=== PATIENT | male | born 1970 | race Caucasian/White ===

== ENCOUNTER 2019-02-02 23:26 | Emergency (ER) | payer SELFPAY ==
[~2019-02-02] VITALS: Ht 177.8 cm; Wt 81.6 kg
[~2019-02-02 23:26] MED LIST: CIPRODEX 0.3%-7.5 ML OT; FLEXERIL10 MG PO; SEPTRA DS 800 M1 TAB PO; TRAMADOL HCL50 MG PO; VICODIN 500 MG-1 TAB PO
[2019-02-02 23:49] LABS: BASO % 0.3 % (0.0-1.0); EOS % 0.1 % (1.0-4.0); HEMATOCRIT 43.5 % (42.0-52.0); HEMOGLOBIN 14.8 g/dl (14.0-18.0); LYMPH # 2.9 10*3/uL (1.3-4.4); LYMPH % 33.2 % (27.0-41.0); MEAN CELL VOLUME 95.8 fl (80.0-94.0); MEAN CORPUSCULAR HGB 32.6 pg (27.0-31.0); MEAN PLATELET VOLUME 9.3 fl (9.6-12.3); MONO # 0.7 10*3/uL (0.1-1.0); MONO % 8.5 % (3.0-9.0); NEUT % 57.8 % (47.0-73.0); PLATELET COUNT AUTOMATED 160 10*3/uL (130-400); RED BLOOD COUNT 4.54 10*6/uL (4.50-5.90); RED CELL DISTRI WIDTH 12.5 % (0-14.5); WHITE BLOOD COUNT 8.7 10*3/uL (4.8-10.8)
[2019-02-02 23:59] LABS: ACT PARTIAL THROMBO TIME 26.9 SECONDS (20.0-32.1)
[2019-02-03 00:08] LABS: ALBUMIN 3.4 gm/dl (3.1-4.5); ALKALINE PHOSPHATASE 81 U/L (45-117); BUN 17 mg/dl (7-24); CHLORIDE 105 mmol/L (98-107); CREATININE 1.02 mg/dL (0.70-1.30); POTASSIUM 3.6 mmol/L (3.5-5.1); SGOT/AST 18 IU/L (3-35); SGPT/ALT 24 U/L (12-78); SODIUM 135 mmol/L (136-145); TOTAL PROTEIN 7.3 gm/dL (6.4-8.2)
[2019-02-03 00:12] LABS: TROPONIN I < 0.015 ng/ml (<0.045)
[2019-02-03 01:40] VITALS: BP 92/61
== END 2019-02-03 03:10 | disposition home or self-care (01) ==
LOC: ED 23:26
PROVIDERS: Emergency Medicine
DX: R55 Syncope and collapse (principal); I95.9 Hypotension, unspecified

== ENCOUNTER 2023-11-11 21:46 | Emergency (ER) | payer SELFPAY ==
[~2023-11-11] VITALS: Ht 177.8 cm; Wt 83.9 kg
[2023-11-11 21:58] VITALS: BP 137/88
[2023-11-11] MEDS ORDERED: AMOX-CLAV 875-1 EACH PO (22:28)
[2023-11-11] MEDS ORDERED: HYDROCODONE-AC1 EACH PO (22:28)
[2023-11-11] MEDS ORDERED: Amoxicillin/Clavulanate Pota 875 MG TAB PO ONE (22:30)
[2023-11-11] MEDS ORDERED: Acetaminophen/Hydrocodone HP 10/325 PO ONE (22:30)
== END 2023-11-11 22:48 | disposition home or self-care (01) ==
LOC: ED 21:46
DX: K04.7 Periapical abscess without sinus (principal); F17.210 Nicotine dependence, cigarettes, uncomplicated